=== PATIENT | male | born 1970 | race Two or more races ===

== ENCOUNTER 2020-12-01 02:30 | Inpatient (IN) | payer MEDICAID, OTHER ==
[~2020-12-01] VITALS: Ht 177.8 cm; Wt 73.9 kg
[2020-12-01] VITALS (36 sets, daily range): BP systolic 91–140; BP diastolic 60–90
[2020-12-01] MEDS ORDERED: TETANUS, DIPHTHERIA, PERTUSSIS VAC/PF 0.5ML (>10YR OLD) IM ONE (03:15)
[2020-12-01 03:29] LABS: BASOPHILS % 0.3 % (0.0-2.0); EOSINOPHILS % 1.1 % (0.0-5.0); HEMATOCRIT. 53.5 % (42.0-52.0); HEMOGLOBIN. 18.7 g/dL (14.0-18.0); LYMPHOCYTES % 23.9 % (20.0-50.0); MEAN CORPUSCULAR VOLUME 97.3 fL (80.0-94.0); MEAN PLATELET VOLUME 8.2 fl (7.4-10.4); MONOCYTES % 6.1 % (2.0-8.0); NEUTROPHILS % 68.6 % (40.0-76.0); PLATELET 226 x1000/uL (130-400); RED BLOOD CELL COUNT 5.49 mill/uL (4.7-6.1); RED CELL DISTRIBUTION WIDTH 13.5 % (11.6-14.6)
[2020-12-01 03:40] LABS: CHLORIDE 106 mEq/L (98-107)
[2020-12-01 03:53] LABS: ETHANOL BLOOD 319 mg/dL
[2020-12-01 04:11] LABS: PROTHROMBIN TIME 10.4 sec (9.6-11.0)
[2020-12-01 04:15] LABS: *AMPHETAMINES SCREEN URINE NEGATIVE (NEGATIVE); *BARBITURATES SCREEN URINE NEGATIVE (NEGATIVE); *BENZODIAZEPINES SCREEN URINE NEGATIVE (NEGATIVE); *COCAINE SCREEN URINE PRESUMTIVE POSITIVE (NEGATIVE); METHADONE URINE SCREEN NEGATIVE (NEGATIVE)
[2020-12-01 04:16] LABS: CANNABINOID URINE SCREEN NEGATIVE (NEGATIVE); OPIATES URINE SCREEN NEGATIVE (NEGATIVE); PHENCYCLIDINE URINE SCREEN NEGATIVE (NEGATIVE)
[2020-12-01] MEDS ORDERED: THIAMINE HCL 100 MG in SODIUM CHLORIDE 0.9% 49 ML IV ONE (10:00)
[2020-12-01] MEDS: LEVETIRACETAM 500MG PREMIX 100 ML IV SCH ×2 (10:28→21:29)
[2020-12-01] MEDS: MORPHINE SULFATE 2 MG/ML CPJ (NOT FOR IM USE) IV PRN ×3 (10:28→18:51)
[2020-12-01] MEDS ORDERED: FOLIC ACID 1 MG, THIAMINE HCL 100 MG, MVI, ADULT NO.1 10 ML in DEXTROSE 5% WATER 1,000 ML IV NR (10:30)
[2020-12-01] MEDS: ONDANSETRON HCL 4MG/2ML INJ IV PRN ×3 (10:38→18:50)
[2020-12-01] MEDS ORDERED: LEVETIRACETAM 500 MG in SODIUM CHLORIDE 0.9% 100 ML IV SCH (17:00)
[2020-12-01] MEDS: LORAZEPAM 2MG/ML CPJ IV PRN (20:02)
[2020-12-02] VITALS: BP 136/79
[2020-12-02] MEDS: ONDANSETRON HCL 4MG/2ML INJ IV PRN (02:50)
[2020-12-02] MEDS: LORAZEPAM 2MG/ML CPJ IV PRN ×2 (02:50→12:50)
[2020-12-02 04:00] VITALS: BP 153/86
[2020-12-02] MEDS ORDERED: KETOROLAC 30MG/ML VIAL IV PRN (05:00)
[2020-12-02] MEDS ORDERED: *PATIENT'S OWN MEDICATION STORAGE XX SCH (06:00)
[2020-12-02 08:00] VITALS: BP 149/82
[2020-12-02] MEDS: LEVETIRACETAM 500MG PREMIX 100 ML IV SCH ×2 (08:10→20:30)
[2020-12-02] MEDS: ACETAMINOPHEN 325MG TABLET PO PRN (08:11)
[2020-12-02] MEDS: PANTOPRAZOLE SODIUM 40 MG/VIAL IV SCH (08:11)
[2020-12-02 12:00] VITALS: BP 136/84
[2020-12-02 16:00] VITALS: BP 152/88
[2020-12-02] MEDS ORDERED: MECLIZINE 25MG TABLET PO PRN (16:00)
[2020-12-02 16:22] LABS: BASOPHILS % 0.2 % (0.0-2.0); EOSINOPHILS % 0.5 % (0.0-5.0); HEMATOCRIT. 43.4 % (42.0-52.0); HEMOGLOBIN. 15.4 g/dL (14.0-18.0); LYMPHOCYTES % 11.3 % (20.0-50.0); MEAN CORPUSCULAR HEMOGLOBIN 34.5 pg (28.0-32.0); MEAN PLATELET VOLUME 8.3 fl (7.4-10.4); PLATELET 195 x1000/uL (130-400); RED BLOOD CELL COUNT 4.48 mill/uL (4.7-6.1)
[2020-12-02 17:17] LABS: CHLORIDE 99 mEq/L (98-107)
[2020-12-02] MEDS: ATENOLOL 50 MG TABLET PO SCH ×2 (17:19→17:22)
[2020-12-02] MEDS: MORPHINE SULFATE 2 MG/ML CPJ (NOT FOR IM USE) IV PRN (18:06)
[2020-12-02 20:00] VITALS: BP 144/79
[2020-12-03] VITALS: BP 152/96
[2020-12-03] MEDS: ACETAMINOPHEN 325MG TABLET PO PRN ×2 (01:39→17:08)
[2020-12-03] MEDS: LORAZEPAM 2MG/ML CPJ IV PRN ×3 (01:39→18:15)
[2020-12-03 04:00] VITALS: BP 144/81
[2020-12-03] MEDS ORDERED: ATENOLOL 50 MG TABLET PO SCH (09:00)
[2020-12-03] MEDS: LEVETIRACETAM 500MG PREMIX 100 ML IV SCH ×2 (09:58→21:27)
[2020-12-03] MEDS: MORPHINE SULFATE 2 MG/ML CPJ (NOT FOR IM USE) IV PRN ×2 (09:59→23:45)
[2020-12-03] MEDS: PANTOPRAZOLE SODIUM 40 MG/VIAL IV SCH (10:17)
[2020-12-03] MEDS ORDERED: NALOXONE HCL 0.4MG/ML VIAL IV PRN (10:45)
[2020-12-03] MEDS ORDERED: HYDRALAZINE 20MG/ML VIAL IV PRN (10:45)
[2020-12-03 12:00] VITALS: BP 132/89
[2020-12-03] MEDS ORDERED: KEPP500 MT (13:31)
[2020-12-03] MEDS ORDERED: MULT-1146 MT (13:31)
[2020-12-03] MEDS ORDERED: THIA100T88 MT (13:31)
[2020-12-03] MEDS ORDERED: FOLI-43 MT (13:31)
[2020-12-03 16:00] VITALS: BP 160/91
[2020-12-03 18:27] LABS: T4 FREE 1.23 ng/dL (0.76-1.46)
[2020-12-03 20:00] VITALS: BP 133/79
[2020-12-04] VITALS: BP 129/87
[2020-12-04] MEDS: LORAZEPAM 2MG/ML CPJ IV PRN (03:13)
[2020-12-04] MEDS: ACETAMINOPHEN 325MG TABLET PO PRN (03:13)
[2020-12-04 04:00] VITALS: BP 131/89
[2020-12-04 06:21] LABS: BASOPHILS % 0.2 % (0.0-2.0); EOSINOPHILS % 1.8 % (0.0-5.0); HEMATOCRIT. 43.7 % (42.0-52.0); HEMOGLOBIN. 15.1 g/dL (14.0-18.0); MEAN CORPUSCULAR HEMOGLOBIN 33.3 pg (28.0-32.0); MEAN CORPUSCULAR VOLUME 95.9 fL (80.0-94.0); MEAN PLATELET VOLUME 8.3 fl (7.4-10.4); MONOCYTES % 9.7 % (2.0-8.0); NEUTROPHILS % 70.3 % (40.0-76.0); PLATELET 183 x1000/uL (130-400); RED BLOOD CELL COUNT 4.55 mill/uL (4.7-6.1); RED CELL DISTRIBUTION WIDTH 12.7 % (11.6-14.6)
[2020-12-04 06:27] LABS: CHLORIDE 100 mEq/L (98-107)
[2020-12-04 08:00] VITALS: BP 127/65
[2020-12-04] MEDS: PANTOPRAZOLE SODIUM 40 MG/VIAL IV SCH (09:25)
[2020-12-04] MEDS: LEVETIRACETAM 500MG PREMIX 100 ML IV SCH (09:26)
[2020-12-04] MEDS: MORPHINE SULFATE 2 MG/ML CPJ (NOT FOR IM USE) IV PRN (09:27)
[2020-12-04 10:57] VITALS: BP 127/65
[2020-12-04] MEDS ORDERED: HYDROCODONE/ACETAMINOPHEN 5/325MG TABLET PO NR (11:00)
== END 2020-12-04 12:05 | disposition home or self-care (01) | DRG 84 ==
LOC: ER 02:30 → MICUSO 04:46 → ENRESERV 07:46 → 8WST 22:49
PROVIDERS: ADMIT Internal Medicine; ATTEND Internal Medicine
DX: S06.5X9A Traumatic subdural hemorrhage with loss of consciousness of unspecified duration, initial encounter (principal); F10.129 Alcohol abuse with intoxication, unspecified; F14.10 Cocaine abuse, uncomplicated; F32.9 Major depressive disorder, single episode, unspecified; F41.1 Generalized anxiety disorder; E86.0 Dehydration; E80.6 Other disorders of bilirubin metabolism; S06.6X9A Traumatic subarachnoid hemorrhage with loss of consciousness of unspecified duration, initial encounter; Z60.2 Problems related to living alone; Z20.822 Contact with and (suspected) exposure to COVID-19; I10 Essential (primary) hypertension; Y90.8 Blood alcohol level of 240 mg/100 ml or more; W18.39XA Other fall on same level, initial encounter; Y93.89 Activity, other specified; Y99.8 Other external cause status; Y92.512 Supermarket, store or market as the place of occurrence of the external cause; Z79.899 Other long term (current) drug therapy; Z88.0 Allergy status to penicillin; Z71.51 Drug abuse counseling and surveillance of drug abuser
CPT/HCPCS: 36415; 70486; 71045; 80048; 80053; 80061; 80305; 80320; 83036; 83735; 84439; 84443; 85025; 87426; 90715; 93306; 93880; 97161; 99291; C9113; J1953; J2060; J2270; J2405; J3411; J3490; J7040; J7070; G0480